=== PATIENT | female | born 1990 | race Caucasian/White ===

== ENCOUNTER 2016-10-20 23:05 | Emergency (ER) | payer MEDICAID ==
[2016-10-20 23:23] VITALS: BP 131/88
--- NOTE | 2016-10-20 23:31 | EDM.PDOC ---
ED HPI Trauma - General Chief Complaint: Upper Extremity Injury/Pain Stated Complaint: INFECTED FINGER Time Seen by Provider: 10/20/16 23:27 - History of Present Illness INITIAL COMMENTS - FREE TEXT/NARRATIVE: HISTORY AND PHYSICAL: History of present illness: Patient's 26-year-old female presents for internal swelling and tenderness in the dorsal aspect of the second digit of the right hand was or less several days after she had pulled a splinter from the cuticle area. Review of systems: As per history of present illness and below otherwise all systems reviewed and negative. Past medical history: As per history of present illness and as reviewed below otherwise noncontributory. Surgical history: As per history of present illness and as reviewed below otherwise noncontributory. Social history: No reported history of drug or alcohol abuse. Family history: As per history of present illness and as reviewed below otherwise noncontributory. Physical exam: HEENT: Atraumatic, normocephalic, pupils reactive, negative for conjunctival pallor or scleral icterus, mucous membranes moist, throat clear, neck supple, nontender, trachea midline. Lungs: Clear to auscultation, breath sounds equal bilaterally, chest nontender. Heart: S1S2, regular, negative for clicks, rubs, or JVD. Abdomen: Soft, nondistended, nontender. Negative for masses or hepatosplenomegaly. Negative for costovertebral tenderness. Pelvis: Stable nontender. Genitourinary: Deferred. Rectal: Deferred. Extremities: Patient has some small swelling and erythema in the region of the cuticle and dorsal aspect of the second digit right hand no fluctuance is mild erythema minimal induration neurovascular exam CMS are unremarkable there is no tendon involvement. Neuro: Awake, alert, oriented. Cranial nerves II through XII unremarkable. Cerebellum unremarkable. Motor and sensory unremarkable throughout. Exam nonfocal. Diagnostics: None Therapeutics: None Impression: #1 cellulitis second digit right hand Definitive disposition and diagnosis as appropriate pending reevaluation and review of above. Allergies/ADRs: Allergies Sulfa (Sulfonamide Antibiotics) Allergy (Verified 10/20/16 23:24) Hives Home Medications: Ambulatory Orders . [Unable to Verify Home Med List] 10/20/16 [Confirmed 10/20/16] Review of Systems - Review of Systems Review Of Systems: ROS reveals no pertinent complaints other than HPI. Trauma Exam - Physical Exam Exam: See Below (See dictation) Course - Vital Signs Last Recorded V/S: Last Vital Signs Temp 36.6 C 10/20/16 23:12 Pulse 97 10/20/16 23:12 Resp 20 10/20/16 23:12 BP 131/88 10/20/16 23:12 Pulse Ox 99 10/20/16 23:12 Departure - Departure Time of Disposition: 23:30 Disposition: Home, Self-Care 01 Condition: good Clinical Impression: Cellulitis Forms: ED Department Discharge Additional Instructions: The following information is given to patients seen in the emergency department who are being discharged to home. This information is to outline your options for follow-up care. We provide all patients seen in our emergency department with a follow-up referral. The need for follow-up, as well as the timing and circumstances, are variable depending upon the specifics of your emergency department visit. If you don't have a primary care physician on staff, we will provide you with a referral. We always advise you to contact your personal physician following an emergency department visit to inform them of the circumstance of the visit and for follow-up with them and/or the need for any referrals to a consulting specialist. The emergency department will also refer you to a specialist when appropriate. This referral assures that you have the opportunity for followup care with a specialist. All of these measure are taken in an effort to provide you with optimal care, which includes your followup. Under all circumstances we always encourage you to contact your private physician who remains a resource for coordinating your care. When calling for followup care, please make the office aware that this follow-up is from your recent emergency room visit. If for any reason you are refused follow-up, please contact the [facility] emergency department at and asked to speak to the emergency department charge nurse. Keflex Tylenol #3 as prescribed followup with primary medical doctor one to 2 days return as needed as discussed
== END 2016-10-20 23:43 | disposition home or self-care (01) ==
LOC: MW.ED 23:05
DX: L03.011 Cellulitis of right finger (principal); Z88.2 Allergy status to sulfonamides
CPT/HCPCS: 99283